=== PATIENT | female | born 1945 | race Caucasian/White ===

== ENCOUNTER 2017-06-12 06:34 | Emergency (ER) | payer OTHER ==
[~2017-06-12] VITALS: Ht 172.7 cm; Wt 95.0 kg
[~2017-06-12 06:34] MED LIST: HYDR-3533 PO; LEVO150T7 PO; LISI40TA PO; METF500 PO; SIMV40TA PO; VENL-39 PO; VENL150T14 PO
[2017-06-12 06:37] VITALS: BP 161/75; PULSE 106; RESP 16; TEMP 97.9; O2SAT 99
--- NOTE | 2017-06-12 07:13 | PD ---
HPI Chief Complaint: Fall Time Seen by Provider: 07:05 Travel History International Travel<30 days: No Contact w/Intl Traveler<30days: No Traveled to known affect area: No History of Present Illness HPI 71-year-old female presents to the emergency department by private transportation for complaint of back pain status post non-syncopal slip and fall Saturday. Patient reports she was getting out of the bathtub when she lost her balance and fell. Patient states she landed in a twisting-type manner she tried to catch her fall. Patient states she did not hit her head did not have loss of consciousness did not injure her neck. Patient does not have any upper extremity or lower extremity numbness tingling or weakness. Patient has chronic low back pain by history. Patient denies any bladder or bowel dysfunction or saddle anesthesia. Patient takes no blood thinning agents. Patient is diabetic by history. Patient has been taking Aleve with only minimal relief. Patient denies any chest pain or shortness of breath and no pleuritic pain. Patient does complain of some left mid axillary chest wall discomfort with palpation and was twisting motion. Patient also complains of some referred pain to the lateral right thigh. Patient rates her pain 8/10 in intensity. Patient states since her fall she has been using her cane to assist with ambulation which is atypical for her. PFSH Past Medical History Narrative Medical Dyslipidemia diabetes asthma musculoskeletal pain/chronic back pain Hypertension hypothyroidism; cholecystectomy hysterectomy; occasional alcohol use: Nursing notes reviewed High Cholesterol: Yes Diabetes: Yes Hypertension: Yes Thyroid Disease: Yes (HYPO) Past Surgical History Section: Yes Cholecystectomy: Yes Gynecologic Surgery: Yes (HYSTERECTOMY) Oral Surgery: Yes (JAW SURGERY) Social History Alcohol Use: No Tobacco Use: No Substance Use: No Allergies-Medications (Allergen,Severity, Reaction): Coded Allergies: Sulfa (Sulfonamide Antibiotics) (Unverified Allergy, Intermediate, Rash, ) Reported Meds & Prescriptions Reported Meds & Active Scripts Active Lortab 5 mg/325 mg (Hydrocodone/Acetaminophen 5 mg/325 mg) 1 Tab 1 Tab PO Q6H PRN Reported Glucophage 500 mg (Metformin HCl) 500 Mg Tab 500 Mg PO BIDPC Venlafaxine Hcl Er (Venlafaxine HCl) 150 Mg Tab 150 Mg PO DAILY Venlafaxine Hcl Er (Venlafaxine HCl) 75 Mg Tab 75 Mg PO HS Simvastatin 40 Mg Tab 1 Tab PO HS Prinivil 40 mg (Lisinopril) 40 Mg Tab 40 Mg PO BID Levothyroxine 150 mcg (Levothyroxine Sodium) 150 Mcg Tab 1 Tab PO DAILY Review of Systems Except as stated in HPI: all other systems reviewed are Neg General / Constitutional: No: Fever, Chills Eyes: No: Visual changes HENT: No: Headaches, Neck Pain Cardiovascular: No: Chest Pain or Discomfort, Diaphoresis, Syncope Respiratory: No: Shortness of Breath, Pleuritic Pain Gastrointestinal: No: Nausea, Vomiting, Abdominal Pain Genitourinary: No: Decreased Urinary Output, Flank Pain Musculoskeletal: Positive: Myalgias, Arthralgias, Pain (low back pain referred right lateraL THIGH), No: Limited ROM Skin: No Rash Neurologic: No: Weakness, Dizziness, Syncope Psychiatric: No: Anxiety Endocrine: No: Heat Intolerance Hematologic/Lymphatic: No: Easy Bruising Physical Exam Narrative GENERAL: Well-developed well-nourished female in no acute distress no respiratory distress; GCS 15; no antalgic movement supine to sitting upright SKIN: Warm and dry. HEAD: Atraumatic. Normocephalic. No scalp soft tissue hematoma tenderness or glenda abnormality. EYES: Pupils equal and round. No scleral icterus. No injection or drainage. ENT: No nasal bleeding or discharge. Mucous membranes pink and moist. NECK: Trachea midline. No JVD. No midline tenderness to direct palpation no bony step-off. CARDIOVASCULAR: Regular rate and rhythm. Chest wall: No ecchymosis no abrasion no erythema no crepitus tender to palpation along the left midaxillary chest wall RESPIRATORY: No accessory muscle use. Clear to auscultation. Breath sounds equal bilaterally. GASTROINTESTINAL: Abdomen soft, non-tender, nondistended. Hepatic and splenic margins not palpable. MUSCULOSKELETAL: Extremities without clubbing, cyanosis, or edema. No obvious deformities. Dorsal and lumbar spine nontender to direct palpation no bony step -off no tenderness over the SI joints bilaterally; raising increases right hip and low back pain. Sensory exam grossly intact as tested. Radial and dorsalis pedis pulses 2+ to palpation. NEUROLOGICAL: Awake and alert. No obvious cranial nerve deficits. Motor grossly within normal limits. Five out of 5 muscle strength in the arms and legs. Normal speech. PSYCHIATRIC: Appropriate mood and affect; insight and judgment normal. Data Data Last Documented VS Vital Signs Date Time Temp Pulse Resp B/P (MAP) Pulse Ox O2 Delivery O2 Flow Rate FiO2 06/12/17 06:37 97.9 106 16 161/75 (103) 99 Orders Orders Ribs, Uni (W/Exp Cxr-Min 3vw) (06/12/17 ) Spine, Lumbar - Ltd (Ap & Lat) (06/12/17 ) Hip, Uni(Ap&Lat) W Ap Pelvis (06/12/17 ) Urinalysis - C+S If Indicated (06/12/17 07:13) MDM Medical Decision Making Medical Screen Exam Complete: Yes Emergency Medical Condition: Yes Medical Record Reviewed: Yes Differential Diagnosis Mechanical fall, contusion, exac lumbar disc disease, HNP, cord compression, rib fracture, chest wall contusion, sciatica, sacroiliitis, vertebral compression fracture, musculoskeletal pain, uti; unlikely pneumothorax Narrative Course 71-year-old female presents to the emergency department for complaint of muscular skeletal pain primarily right sided but left mid axillary chest wall as well reportedly minimal relief of symptoms with Aleve. Plan limited lumbar spine and right hip with pelvis as well as left rib x-rays. @ 7:15 care signed over to Shelbi Jay MD Jun 12, 2017 07:13
[2017-06-12] MEDS ORDERED: LANTUS2P SQ ×2 (07:17)
[2017-06-12] MEDS ORDERED: VENL100T PO (07:17)
[2017-06-12] MEDS ORDERED: LEVO150T7 PO (07:17)
[2017-06-12] MEDS ORDERED: METF500T PO (07:17)
[2017-06-12] MEDS ORDERED: LISI40TA PO (07:17)
[2017-06-12] MEDS ORDERED: ASPI81CH CHEW (07:17)
[2017-06-12] MEDS ORDERED: NOVOLOGP2 SQ (07:17)
[2017-06-12] MEDS ORDERED: VENL75TA PO (07:17)
[2017-06-12] MEDS ORDERED: SIMV40TA PO (07:17)
--- NOTE | 2017-06-12 07:54 | RADRPT ---
EXAM DATE/TIME: 06/12/2017 07:27 [facility] COMPARISON: No previous studies available for comparison. INDICATIONS : Fall, right hip pain. MEDICAL HISTORY : None. SURGICAL HISTORY : None. ENCOUNTER: Initial ACUITY: 2 days PAIN SCORE: 8/10 LOCATION: Right hip FINDINGS: No fracture or dislocation, there is severe joint space narrowing of the bilateral hips right greater than left with acetabular and femoral osteophyte formation. The bone density is normal. CONCLUSION: Osteoarthritis. Josué Bolanos MD on June 12, 2017 at 7:52 Board Certified Radiologist. This report was verified electronically.
[2017-06-12 08:32] LABS: BLOOD, URINE NEG (NEG); GLUCOSE,URINE 500 mg/dL (NEG); KETONE, URINE 15 mg/dL (NEG); METHOD OF COLLECTION CLEAN CATCH; NITRITE,URINE POS (NEG); URINE COLOR YELLOW (YELLW/STRAW)
[2017-06-12 08:38] LABS: BACTERIA, URINE MANY /hpf; COMMENT (UR) CULTURE INDICATED; CULTURE IF INDICATED CULTURE INDICATED; SQUAMOUS EPITHELIAL CELL URINE 0-5 /hpf (0-5)
[2017-06-12] MEDS ORDERED: NITROFURANTOIN MONOHYD MACROCR 100 MG CAP PO ONE (09:15)
--- NOTE | 2017-06-12 09:15 | RADRPT ---
EXAM DATE/TIME: 06/12/2017 07:38 [facility] COMPARISON: No previous studies available for comparison. INDICATIONS : Fall, left posterior rib pain. MEDICAL HISTORY : asthma SURGICAL HISTORY : None. ENCOUNTER: Initial ACUITY: 2 days PAIN SCORE: 5/10 LOCATION: Left posterior ribs FINDINGS: Multiple views of the left ribs were performed. There is no evidence of displaced fracture. No dest ructive lesions or areas of periosteal thickening are seen. Expiratory view of the chest is negative for pneumothorax. The mediastinal structures are midline. CONCLUSION: Negative for displaced rib fracture. Percy Cortés MD FACR on June 12, 2017 at 9:13 Board Certified Radiologist. This report was verified electronically.
--- NOTE | 2017-06-12 09:53 | RADRPT ---
EXAM DATE/TIME: 06/12/2017 07:47 [facility] COMPARISON: No previous studies available for comparison. INDICATIONS : Fall, low back pain. MEDICAL HISTORY : None. SURGICAL HISTORY : None. ENCOUNTER: Initial ACUITY: 2 days PAIN SCORE: 8/10 LOCATION: Low back FINDINGS: There are degenerative changes in the lumbar spine. There is loss of disc space height at L5-S1. Mo derate degenerative changes are present in the facets. There is good preservation of the vertebral b [place]. CONCLUSION: Degenerative changes without acute compression. MRI would be more sensitive for such. Percy Cortés MD FACR on June 12, 2017 at 9:14 Board Certified Radiologist. This report was verified electronically.
[2017-06-12] MEDS ORDERED: IBUP400T20 PO (10:14)
[2017-06-12] MEDS ORDERED: MACR100C2 PO (10:14)
--- NOTE | 2017-06-12 10:14 | PD ---
Physical Exam Date Seen by Provider: Jun 12, 2017 Time Seen by Provider: 10:09 Narrative 71-year-old female came to the emergency room for her ribs hurting and lower back pain from a fall yesterday. Patient was seen by the previous ER physician. Please refer to her history and physical for further details. Sign out to me was to follow-up on her x-ray reports. The x-ray reports took a while to come back. They do not show any fracture but a lot of degenerative changes. UA suggestive of UTI. I gave her dose of Macrobid. I went and discussed with the patient about her report. She is glad to know that there are no fractures. She told me that last night she was unable to get out of her bathtub and she was unable to lift her leg. She lives by herself and does not have any family. She has few friends and I recommended her to have her phone next to her at all times to get a [employer] bracelet. She agreed. I asked her to it out of the stretcher and take a few steps. She has done that successfully. She used her cane. She is comfortable going home. Discharge her home on ibuprofen prescription. Data Data Last Documented VS Orders Orders Ribs, Uni (W/Exp Cxr-Min 3vw) (06/12/17 ) Spine, Lumbar - Ltd (Ap & Lat) (06/12/17 ) Hip, Uni(Ap&Lat) W Ap Pelvis (06/12/17 ) Urinalysis - C+S If Indicated (06/12/17 07:13) Urine Culture (06/12/17 08:10) Nitrofurantoin Monohyd Macrocr (Macrobid (06/12/17 09:15) Labs Laboratory Tests Test 06/12/17 08:10 Urine Collection Type CLEAN CATCH Urine Color YELLOW Urine Turbidity MOD Urine pH 7.0 Urine Specific [place] 1.030 Urine Protein TRACE mg/dL Urine Glucose (UA) 500 mg/dL Urine Ketones 15 mg/dL Urine Occult Blood NEG Urine Nitrite POS Urine Bilirubin NEG Urine Leukocyte Esterase NEG Urine WBC 9-14 /hpf Urine Squamous Epithelial Cells 0-5 /hpf Urine Amorphous Sediment FEW Urine Bacteria MANY /hpf Microscopic Urinalysis Comment CULTURE INDICATED Urine Collection Time 0810 MDM Supervised Visit with GREGORY: No Diagnosis Primary Impression: UTI (urinary tract infection) Qualified Codes: N39.0 - Urinary tract infection, site not specified Additional Impressions: Fall Qualified Codes: W19.XXXA - Unspecified fall, initial encounter Hip strain Qualified Codes: S76.011A - Strain of muscle, fascia and tendon of right hip, initial encounter Referrals: Primary Care Physician Additional Instruction: Please take the medications as per the prescription direction. Drink lots of fluid. Keep yourself phone or portable phone next to you wherever you go. Consider getting a med alert bracelet. Take the medication as per the prescription direction. Follow-up with your primary care in couple days. Med/Other Pt SpecificInfo: Prescription(s) given Scripts Ibuprofen (Ibuprofen) 400 Mg Tab 400 MG PO Q8H Y for PAIN SCALE 1 TO 5, #20 TAB 0 Refills Prov: Sarika Gutierrez MD 06/12/17 Nitrofurantoin Monohydrate Macrocrystals (Macrobid) 100 Mg Cap 100 MG PO BID for Infection, #20 CAP 0 Refills Prov: Sarika Gutierrez MD 06/12/17 Disposition: 01 DISCHARGE HOME Condition: Stable Sarika Gutierrez MD Jun 12, 2017 10:14
== END 2017-06-12 10:22 | disposition home or self-care (01) ==
LOC: PHED 06:34
DX: N39.0 Urinary tract infection, site not specified (principal); S76.011A Strain of muscle, fascia and tendon of right hip, initial encounter; M54.5 Low back pain; R07.9 Chest pain, unspecified; B96.4 Proteus (mirabilis) (morganii) as the cause of diseases classified elsewhere; E78.5 Hyperlipidemia, unspecified; E11.9 Type 2 diabetes mellitus without complications; I10 Essential (primary) hypertension; E03.9 Hypothyroidism, unspecified; W01.0XXA Fall on same level from slipping, tripping and stumbling without subsequent striking against object, initial encounter; Z79.84 Long term (current) use of oral hypoglycemic drugs; Z87.09 Personal history of other diseases of the respiratory system
CPT/HCPCS: 71101; 72100; 73502; 81001; 87077; 87086; 87186; 99284

== ENCOUNTER 2017-08-12 16:29 | Emergency (ER) | payer OTHER ==
[~2017-08-12] VITALS: Ht 172.7 cm; Wt 100.0 kg
[~2017-08-12 16:29] MED LIST changes: +ASPI-516 CHEW; -HYDR-3533 PO; +IBUP1TAB5 PO; +LANTUS2P SQ; +MACR100C2 PO; -METF500 PO; +METF500T PO; +NOVOLOGP2 SQ; -VENL-39 PO; +VENL100T PO; -VENL150T14 PO; +VENL75TA PO
[2017-08-12 16:40] VITALS: BP 159/95; PULSE 100; RESP 16; TEMP 98; O2SAT 99
[2017-08-12] MEDS ORDERED: ACETAMINOPHEN 500 MG CPLT PO ONE (18:15)
--- NOTE | 2017-08-12 18:29 | PD ---
HPI Chief Complaint: Fall Time Seen by Provider: 17:54 Travel History International Travel<30 days: No Contact w/Intl Traveler<30days: No Traveled to known affect area: No History of Present Illness HPI This is a 71-year-old female who presents to the emergency department having tripped over a curb and hitting her face, landing on her right hand, with wrist pain, constant, moderate severity, worse with movement, improved with rest associated with some pain in her back. She also had some blood on her nose that she's not sure if it came from inside or outside. She did hit her head and she takes a baby aspirin every day. She didn't lose consciousness and hasn' t vomited. She does incidentally have an appointment with a hand surgeon on Saturday because she's been having tingling in her fingers and she thinks it's neuropathy. PFSH Past Medical History High Cholesterol: Yes Diabetes: Yes Patient Takes Glucophage: No Hypertension: Yes Thyroid Disease: Yes (HYPO) Past Surgical History Section: Yes Cholecystectomy: Yes Gynecologic Surgery: Yes (HYSTERECTOMY) Oral Surgery: Yes (JAW SURGERY) Social History Alcohol Use: Yes (RARELY) Tobacco Use: No Substance Use: No Allergies-Medications (Allergen,Severity, Reaction): Coded Allergies: Sulfa (Sulfonamide Antibiotics) (Unverified Allergy, Intermediate, Rash, 08/12/17) Reported Meds & Prescriptions Reported Meds & Active Scripts Active Ibuprofen 400 Mg Tab 400 Mg PO Q8H PRN Reported Lantus Inj (Insulin Glargine) 1,000 Unit/10 Ml Vial 76 Units SQ DAILY Lantus Inj (Insulin Glargine) 1,000 Unit/10 Ml Vial 20 Units SQ HS Novolog Inj (Insulin Aspart) 1,000 Unit/10 Ml Vial 14 Units SQ TID Effexor (Venlafaxine HCl) 75 Mg Tab 75 Mg PO HS Effexor (Venlafaxine HCl) 100 Mg Tab 150 Mg PO DAILY Simvastatin 40 Mg Tab 40 Mg PO HS Metformin (Metformin HCl) 500 Mg Tab 500 Mg PO BIDPC With meals Lisinopril 40 Mg Tab 40 Mg PO BID Levothyroxine (Levothyroxine Sodium) 150 Mcg Tab 150 Mcg PO DAILY Aspirin 81 Mg Chew 81 Mg CHEW DAILY Review of Systems Except as stated in HPI: all other systems reviewed are Neg Physical Exam Narrative GENERAL:Well appearing, no acute distress SKIN: Focused skin assessment warm and dry. HEAD: Atraumatic. Normocephalic. EYES: Pupils equal and round. No injection or drainage. ENT: Moist mucous membranes NECK: Trachea midline. No focal cervical spine tenderness. CARDIOVASCULAR: Regular rate and rhythm. No murmur appreciated. 2+ right radial pulse with normal capillary refill. RESPIRATORY: Clear to auscultation. Breath sounds equal bilaterally. GASTROINTESTINAL: Abdomen soft, non-tender, nondistended. MUSCULOSKELETAL: Tender to palpation over the right anatomical snuffbox, pain with abduction of the fingers and flexion and extension at the wrist on the right. NEUROLOGICAL: Awake and alert. No obvious cranial nerve deficits. Moving all extremities. Motor and sensation intact in the median, ulnar and radial distributions of the right hand. PSYCHIATRIC: Appropriate mood and affect; insight and judgment normal. Data Data Last Documented VS Vital Signs Date Time Temp Pulse Resp B/P (MAP) Pulse Ox O2 Delivery O2 Flow Rate FiO2 08/12/17 16:40 98.0 100 16 159/95 (116) [address] Brain W/O Iv Contrast(Rout) (08/12/17 ) Ct Facial Bones W/O Iv Cont (08/12/17 ) Wrist, Complete (Tes1unm) (08/12/17 ) Hand, Complete ([id number]) (08/12/17 ) Acetaminophen (Tylenol) (08/12/17 18:15) Splint Or Brace Apply/Monitor (08/12/17 20:05) MDM Medical Decision Making Medical Screen Exam Complete: Yes Emergency Medical Condition: Yes Interpretation(s) Afebrile, tachycardia, hypertensive X-ray: No acute fracture CT head and face: No acute traumatic injury Differential Diagnosis Intracranial hemorrhage, nasal bone fracture, orbital floor fracture, distal radius fracture, scaphoid fracture Narrative Course This is a 71-year-old female who presents to the emergency department having had a mechanical fall on an outstretched hand as well as closed head injury. CTs are reassuring with no evidence of injury. She does have some suspicion for sinusitis but she is asymptomatic. X-rays are reassuring. Patient does have tenderness over the anatomical snuffbox. She will be splinted in a thumb spica. She already has a follow-up appointment with hand surgery on Saturday. Diagnosis Primary Impression: Wrist sprain Qualified Codes: S63.501A - Unspecified sprain of right wrist, initial encounter Patient Instructions: General Instructions Additional Instructions: If you develop numbness, weakness or severe pain in your hand or wrist return to the emergency room. Follow-up with your hand surgeon as scheduled. Med/Other Pt SpecificInfo: Prescription(s) given Scripts Tramadol (Tramadol) 50 Mg Tab 50 MG PO Q6H Y for PAIN, #10 TAB 0 Refills Prov: Kenna España MD 08/12/17 Disposition: 01 DISCHARGE HOME Condition: Stable Kenna España MD Aug 12, 2017 18:29
--- NOTE | 2017-08-12 19:54 | RADRPT ---
EXAM DATE/TIME: 08/12/2017 18:28 [facility] COMPARISON: No previous studies available for comparison. INDICATIONS : Fell on face. RADIATION DOSE: 62.23 CTDIvol (mGy) MEDICAL HISTORY : Hypothyroidism. Hypertension. SURGICAL HISTORY : Cholecystectomy. Hysterectomy. section. ENCOUNTER: Initial ACUITY: 1 day PAIN SCALE: 4/10 LOCATION: cranial TECHNIQUE: Multiple contiguous axial images were obtained of the head. Using automated exposure control and adj ustment of the mA and/or kV according to patient size, radiation dose was kept as low as reasonably a chievable to obtain optimal diagnostic quality images. DICOM format image data is available electro nically for review and comparison. FINDINGS: CEREBRUM: The ventricles are normal for age. No evidence of midline shift, mass lesion, hemorrhage or acute in farction. No extra-axial fluid collections are seen. POSTERIOR FOSSA: The cerebellum and brainstem are intact. The 4th ventricle is midline. The cerebellopontine angle i s unremarkable. EXTRACRANIAL: The visualized portion of the orbits is intact. A chronic sinusitis in the left maxillary antra. Mult iple partially calcified subcutaneous nodules in the left scalp probably represent chronic sebaceous- type cysts. SKULL: The calvaria is intact. No evidence of skull fracture. CONCLUSION: 1. Probable chronic, multiple, partially calcified subcutaneous sebaceous-type cyst in the left scalp . 2. Chronic sinusitis in the left maxillary antra. 3. Nothing acute Antonio Ridley MD on August 12, 2017 at 19:50 Board Certified Radiologist. This report was verified electronically.
--- NOTE | 2017-08-12 19:56 | RADRPT ---
EXAM DATE/TIME: 08/12/2017 18:28 [facility] COMPARISON: No previous studies available for comparison. INDICATIONS : Fell on face. Facial abrasion. RADIATION DOSE: 34.93 CTDIvol (mGy) MEDICAL HISTORY : Hypothyroidism. Hypertension. SURGICAL HISTORY : Cholecystectomy. section.Hysterectomy.Jaw surgery. ENCOUNTER: Initial ACUITY: 1 day PAIN SCORE: 6/10 LOCATION: facial TECHNIQUE: Volumetric scanning of the facial bones was performed. Using automated exposure control and adjustme nt of the mA and/or kV according to patient size, radiation dose was kept as low as reasonably achiev able to obtain optimal diagnostic quality images. DICOM format image data is available electronic[employer] y for review and comparison. FINDINGS: ORBITS: The orbital and infraorbital osseous structures are intact. The retroconal structures have a normal configuration. No radiopaque foreign bodies are seen. NASAL BONE: The nasal bone and maxillary spine are intact ZYGOMATIC ARCHES: Symmetric without evidence of fracture. SINUSES: Opacification of the left maxillary antra characteristic of chronic sinusitis. Regional increased den sity may represent a fungal component. Surgical repair of old anterolateral maxillary wall fractures. NASAL CAVITY: The nasal septum is intact and midline. The lacrimal ducts are intact. SOFT TISSUES: No radiopaque foreign bodies seen. No soft-tissue swelling is seen. INTRACRANIAL: No intracranial air seen. CRIBIFORM PLATE: Grossly intact. CONCLUSION: 1. Previous repair of old maxillary wall fractures. No acute injury. 2. Chronic sinusitis in the left maxillary antra with a possible fungal component Antonio Ridley MD on August 12, 2017 at 19:52 Board Certified Radiologist. This report was verified electronically.
--- NOTE | 2017-08-12 19:57 | RADRPT ---
EXAM DATE/TIME: 08/12/2017 18:37 [facility] COMPARISON: No previous studies available for comparison. INDICATIONS : Right wrist pain. MEDICAL HISTORY : None. SURGICAL HISTORY : None. ENCOUNTER: Initial ACUITY: 1 day PAIN SCORE: 5/10 LOCATION: Right wrist. FINDINGS: Three view examination of the right wrist demonstrates diffuse osseous demineralization with osteoart hritic changes as evident by marginal spurring and some loss of joint space and carpal rows. Osseous structures are otherwise intact. CONCLUSION: 1. Diffuse osseous demineralization with osteoarthritic changes. 2. No acute fracture Antonio Ridley MD on August 12, 2017 at 19:55 Board Certified Radiologist. This report was verified electronically.
--- NOTE | 2017-08-12 19:58 | RADRPT ---
EXAM DATE/TIME: 08/12/2017 18:37 [facility] COMPARISON: No previous studies available for comparison. INDICATIONS : Right hand pain. MEDICAL HISTORY : None. SURGICAL HISTORY : None. ENCOUNTER: Initial ACUITY: 1 day PAIN SCORE: 5/10 LOCATION: Right hand. FINDINGS: Three view examination of the right hand demonstrates diffuse osseous demineralization with some oste oarthritic changes in the interphalangeal joints, carpal row and first CMC joint. No fracture. CONCLUSION: 1. Diffuse osseous demineralization with osteoarthritic changes. 2. No fracture Antonio Ridley MD on August 12, 2017 at 19:56 Board Certified Radiologist. This report was verified electronically.
[2017-08-12] MEDS ORDERED: TRAM50TA PO (20:13)
== END 2017-08-12 20:46 | disposition home or self-care (01) ==
LOC: PHEFT 16:29
DX: S63.501A Unspecified sprain of right wrist, initial encounter (principal); E11.9 Type 2 diabetes mellitus without complications; I10 Essential (primary) hypertension; E78.00 Pure hypercholesterolemia, unspecified; W01.198A Fall on same level from slipping, tripping and stumbling with subsequent striking against other object, initial encounter; Y93.01 Activity, walking, marching and hiking
CPT/HCPCS: 70450; 70486; 73110; 73130; 99284; L3808